=== PATIENT | male | born 1930 ===

== ENCOUNTER → 2017-01-28 | Outpatient (REF) ==
[2017-01-28 10:09] LABS: MEAN CELL VOLUME 99 fl (80.0-100.0); MEAN CORPUSCULAR HGB CONC 33 g/dl (33.0-37.0); MEAN PLATELET VOLUME 10.4 fl (7.4-10.4); PLATELET COUNT 169 K/mm3 (130-400); RED BLOOD COUNT 3.41 M/mm3 (4.20-5.60); REDCELL DISTRIBUTION WIDTH-CV 15.3 % (11.5-14.5); WHITE BLOOD COUNT 17.8 K/mm3 (4.8-10.8)
[2017-01-28 10:24] LABS: ADD PATHOLOGY DIFF REVIEW NO; HEMATOCRIT 33.9 % (42.0-52.0); HEMOGLOBIN 11.3 g/dl (13.5-18.0); MEAN CORPUSCULAR HEMOGLOBIN 33 pg (27.0-31.0)
[2017-01-28 10:34] LABS: BAND 7 % (0-10); EOSINOPHIL 1 % (0-4); NEUTROPHILS 74 % (42.0-75.2); TOTAL CELLS COUNTED 100
[2017-01-28 10:35] LABS: PLATELET ESTIMATE NORMAL (NORMAL)
[2017-01-28 10:36] LABS: HYPOCHROMIA 1+
[2017-01-28 10:48] LABS: ADJUSTED CALCIUM 8.8 mg/dL (8.4-10.2); ALANINE AMINOTRANSFERASE 46 U/L (21-72); ALBUMIN 2.8 gm/dL (3.5-5.0); ALKALINE PHOSPHATASE 192 U/L (50-136); ANION GAP 12 mmol/L (7-16); BILIRUBIN,TOTAL 2.1 mg/dL (0.0-1.0); BLOOD UREA NITROGEN 18 mg/dL (9-20); CALCIUM 7.8 mg/dL (8.4-10.2); CARBON DIOXIDE 34 mmol/L (22-30); CREATININE, serum 1.09 mg/dL (0.66-1.25); GLUCOSE 91 mg/dL (74-106); POTASSIUM 3.3 mmol/L (3.4-5.0); SODIUM 133 mmol/L (137-145); TOTAL PROTEIN 6.6 gm/dL (6.4-8.2)
[2017-01-28 10:51] LABS: CHLORIDE 87 mmol/L (98-107); TROPONIN-I < 0.012 ng/mL (0.000-0.034)
== END ==
LOC: ZCOL.LAB 10:03
PROVIDERS: Internal Medicine
DX: Z01.89 Encounter for other specified special examinations (principal)